=== PATIENT | male | born 1960 | race Caucasian/White ===

== ENCOUNTER 2017-12-31 15:40 | Inpatient (IN) | payer MEDICARE, OTHER ==
[2017-12-31] MEDS: METHYLPREDNISOLONE 125 MG INJ IV (16:04)
[2017-12-31] MEDS: AZITHROMYCIN 500MG/NS (PMX) 250 ML IV (16:05)
[2017-12-31] MEDS: SODIUM CHLORIDE 0.9% 1L BAG IV* (16:05)
[2017-12-31 16:07] LABS: ADD MAN DIFF? NO
[2017-12-31] MEDS: IPRATROPIUM (NEB) 0.5 MG/2.5 ML AMP INH (16:07)
[2017-12-31] MEDS: ALBUTEROL 0.5% (NEB) 2.5 MG/0.5 ML AMP INH (16:08)
[2017-12-31] MEDS: IBUPROFEN 600 MG TAB PO (16:08)
[2017-12-31 16:12] LABS: ABNORMAL IP MESSAGE 1; BASOPHILS % 0.1 % (0.0-2.0); EOSINOPHILS % 0.1 % (0.0-7.0); HEMATOCRIT 44.1 % (42.0-52.0); HEMOGLOBIN 12.9 g/dl (14.0-18.0); LYMPHOCYTES % 17.5 % (15.0-51.0); MEAN CORPUSCULAR HEMOGLOBIN 22.2 pg (29.0-33.0); MEAN CORPUSCULAR HGB CONC 29.3 g/dl (32.0-37.0); MEAN CORPUSCULAR VOLUME 75.8 fl (82.0-101.0); MEAN PLATELET VOLUME 10.1 fl (7.4-10.4); MONOCYTE # 0.5 10^3/ul (0.3-0.9); MONOCYTES % 4.5 % (0.0-11.0); NEUTROPHILS % 77.1 % (39.0-77.0); PLATELET COUNT 173 10^3/UL (140-415); POSITIVE DIFF @See below; RED BLOOD COUNT 5.82 10^6/ul (4.70-6.10); RED CELL DISTRIBUTION WIDTH 20.4 % (11.5-14.5)
[2017-12-31 16:12] LABS: WHITE BLOOD COUNT 11.7 10^3/ul (4.8-10.8)
[2017-12-31 16:27] LABS: INR 1.09; PROTIME 14.3 Sec (11.9-14.9); PT RATIO 1.1
[2017-12-31 16:28] LABS: PARTIAL THROMBOPLASTIN TIME 36.4 Sec (23.0-35.0)
[2017-12-31] MEDS ORDERED: DIPHENHYDRAMINE 50 MG INJ IV (16:30)
[2017-12-31 16:36] LABS: ALANINE AMINOTRANSFERASE 17 IU/L (13-69); ALBUMIN 4.2 g/dl (3.3-4.9); ALBUMIN/GLOBULIN RATIO 1.13; ALKALINE PHOSPHATASE 51 IU/L (42-121); ANION GAP 11 (5-13); ASPARTATE AMINO TRANSFERASE 18 IU/L (15-46); BILIRUBIN,INDIRECT 0.5 mg/dl (0-1.1); BILIRUBIN,TOTAL 0.5 mg/dl (0.2-1.3); BLOOD UREA NITROGEN 47 mg/dl (7-20); CARBON DIOXIDE 29 mmol/L (21-31); CHLORIDE 102 mmol/L (97-110); CREATININE 3.11 mg/dl (0.61-1.24); Estimated GFR 21 mL/min (>60); GLUCOSE 114 mg/dl (70-220); POTASSIUM 4.4 mmol/L (3.5-5.1); SODIUM 142 mmol/L (135-144); TOTAL PROTEIN 7.9 g/dl (6.1-8.1)
[2017-12-31 16:44] LABS: B-TYPE NATRIURETIC PEPTIDE 4240 PG/ML (0-125)
[2017-12-31 16:53] LABS: TROPONIN-I 0.251 ng/ml (0.000-0.120)
[2017-12-31 17:07] LABS: ADD UMIC YES; UR ASCORBIC ACID NEGATIVE (NEGATIVE); UR BILIRUBIN (Dip) NEGATIVE (NEGATIVE); UR BLOOD (Dip) 3+ mg/dL (NEGATIVE); UR CLARITY CLOUDY (CLEAR); UR COLOR YELLOW (YELLOW); UR GLUCOSE (Dip) NEGATIVE (NEGATIVE); UR KETONES (Dip) NEGATIVE (NEGATIVE); UR LEUKOCYTE ESTERASE (Dip) NEGATIVE Leu/ul (NEGATIVE); UR MUCUS FEW /HPF (NONE SEEN); UR NITRITE (Dip) NEGATIVE (NEGATIVE); UR RBC > 182 /HPF (0-5); UR SPECIFIC GRAVITY (Dip) 1.016 (1.003-1.030); UR TOTAL PROTEIN (Dip) 1+ mg/dl (NEGATIVE); UR UROBILINOGEN (Dip) NEGATIVE (NEGATIVE); UR WBC 28 /HPF (0-5)
[2017-12-31] MEDS: CEFTRIAXONE 1 GM/50 ML (PMX) 50 ML IVPB (17:25)
[2017-12-31] MEDS ORDERED: ONDANSETRON 4 MG INJ IV (18:30)
[2017-12-31] MEDS ORDERED: NACL 0.9% 3 ML SYG IV (18:30)
[2017-12-31] MEDS ORDERED: ALBUTEROL/IPRATROPIUM (NEB) 3 ML AMP NEB (18:30)
[2017-12-31] MEDS: NICOTINE (21 MG/24 HR) PATCH TRANSDERM (19:00)
[2017-12-31] MEDS ORDERED: oxyCODONE (CR) 40 MG TAB [oxyCONTIN] PO (20:00)
[2017-12-31] MEDS: ATENOLOL 50 MG TAB PO (21:00)
[2017-12-31 21:05] LABS: LACTIC ACID 2.3 mmol/L (0.5-2.0)
[2017-12-31 21:55] LABS: CREATININE,URINE RANDOM 223.23 mg/dl (20-370)
[2017-12-31] MEDS: GABAPENTIN 300 MG CAP PO (22:19)
[2017-12-31] MEDS: LOSARTAN 50 MG TAB PO (22:19)
[2017-12-31] MEDS: ATORVASTATIN 10 MG TAB PO (22:19)
[2017-12-31] MEDS: SOD CHLORIDE 0.9% 500 ML IV (22:25)
[2017-12-31] MEDS: ENOXAPARIN 30 MG/0.3 ML SYG SC (22:35)
[2017-12-31] MEDS: ARFORMOTEROL TARTRATE 15MCG/2 ML AMP INH (23:00)
[2017-12-31] MEDS: BUDESONIDE (NEB) 0.5MG/2ML AMP INH (23:02)
[2017-12-31] MEDS: oxyCODONE (CR) 20 MG TAB [oxyCONTIN] PO (23:41)
[2018-01-01 01:15] LABS: TROPONIN-I 0.313 ng/ml (0.000-0.120)
[2018-01-01] MEDS: ACETAMINOPHEN 325 MG TAB PO ×2 (03:40→11:46)
[2018-01-01] MEDS: NICOTINE (21 MG/24 HR) PATCH TRANSDERM (03:41)
[2018-01-01] MEDS: ATENOLOL 50 MG TAB PO ×3 (03:47→09:52)
[2018-01-01] MEDS: PANTOPRAZOLE (EC) 40 MG TAB PO ×2 (05:42→06:06)
[2018-01-01 05:59] LABS: ADD MAN DIFF? NO
[2018-01-01] MEDS: oxyCODONE (CR) 20 MG TAB [oxyCONTIN] PO ×3 (06:04→18:17)
[2018-01-01 06:13] LABS: ABNORMAL IP MESSAGE 1; HEMATOCRIT 37.7 % (42.0-52.0); HEMOGLOBIN 11.1 g/dl (14.0-18.0); LYMPHOCYTES # 0.9 10^3/ul (0.8-2.9); LYMPHOCYTES % 12.1 % (15.0-51.0); MEAN CORPUSCULAR HEMOGLOBIN 22.2 pg (29.0-33.0); MEAN CORPUSCULAR HGB CONC 29.4 g/dl (32.0-37.0); MEAN CORPUSCULAR VOLUME 75.6 fl (82.0-101.0); MEAN PLATELET VOLUME 10.9 fl (7.4-10.4); MONOCYTE # 0.2 10^3/ul (0.3-0.9); MONOCYTES % 2.4 % (0.0-11.0); NEUTROPHIL # 6.1 10^3/ul (1.6-7.5); NEUTROPHILS % 85.2 % (39.0-77.0); PLATELET COUNT 149 10^3/UL (140-415); POSITIVE DIFF @See below; RED BLOOD COUNT 4.99 10^6/ul (4.70-6.10); RED CELL DISTRIBUTION WIDTH 19.9 % (11.5-14.5)
[2018-01-01 06:13] LABS: WHITE BLOOD COUNT 7.1 10^3/ul (4.8-10.8)
[2018-01-01] MEDS: GABAPENTIN 300 MG CAP PO ×3 (06:44→17:31)
[2018-01-01 06:45] LABS: ALANINE AMINOTRANSFERASE 15 IU/L (13-69); ALBUMIN 3.7 g/dl (3.3-4.9); ALBUMIN/GLOBULIN RATIO 1.37; ALKALINE PHOSPHATASE 43 IU/L (42-121); ANION GAP 12 (5-13); ASPARTATE AMINO TRANSFERASE 16 IU/L (15-46); BILIRUBIN,INDIRECT 0.3 mg/dl (0-1.1); BILIRUBIN,TOTAL 0.3 mg/dl (0.2-1.3); BLOOD UREA NITROGEN 39 mg/dl (7-20); CARBON DIOXIDE 26 mmol/L (21-31); CHLORIDE 107 mmol/L (97-110); CREATININE 1.64 mg/dl (0.61-1.24); Estimated GFR 44 mL/min (>60); GLUCOSE 155 mg/dl (70-220); MAGNESIUM 2.2 mg/dl (1.7-2.5); PHOSPHORUS 4.6 mg/dl (2.5-4.9); POTASSIUM 4.6 mmol/L (3.5-5.1); SODIUM 145 mmol/L (135-144); TOTAL PROTEIN 6.4 g/dl (6.1-8.1)
[2018-01-01 06:54] LABS: HEMOGLOBIN A1C 5.8 % (0-5.9)
[2018-01-01 07:03] LABS: THYROID STIMULATING HORMONE 0.169 MIU/L (0.465-4.680)
[2018-01-01 07:13] LABS: LACTIC ACID 1.8 mmol/L (0.5-2.0)
[2018-01-01] MEDS: SOD CHLORIDE 0.45% 1,000 ML IV (08:16)
[2018-01-01] MEDS: ASPIRIN 81 MG TAB PO (08:16)
[2018-01-01] MEDS: ENOXAPARIN 30 MG/0.3 ML SYG SC (08:21)
[2018-01-01] MEDS ORDERED: ENOXAPARIN 40 MG/0.4 ML SYG SC (09:00)
[2018-01-01] MEDS: ARFORMOTEROL TARTRATE 15MCG/2 ML AMP INH (10:23)
[2018-01-01] MEDS: BUDESONIDE (NEB) 0.5MG/2ML AMP INH ×2 (10:24→20:38)
[2018-01-01 11:43] LABS: ADD UMIC YES; UR ASCORBIC ACID 40 mg/dL (NEGATIVE); UR BILIRUBIN (Dip) NEGATIVE (NEGATIVE); UR BLOOD (Dip) 3+ mg/dL (NEGATIVE); UR CLARITY CLEAR (CLEAR); UR COLOR YELLOW (YELLOW); UR GLUCOSE (Dip) NEGATIVE (NEGATIVE); UR KETONES (Dip) NEGATIVE (NEGATIVE); UR LEUKOCYTE ESTERASE (Dip) NEGATIVE Leu/ul (NEGATIVE); UR NITRITE (Dip) NEGATIVE (NEGATIVE); UR RBC 66 /HPF (0-5); UR SPECIFIC GRAVITY (Dip) 1.018 (1.003-1.030); UR TOTAL PROTEIN (Dip) 1+ mg/dl (NEGATIVE); UR UROBILINOGEN (Dip) NEGATIVE (NEGATIVE); UR WBC 5 /HPF (0-5)
[2018-01-01 12:10] LABS: SODIUM,URINE RANDOM < 13 mmol/L (30-90)
[2018-01-01 12:30] LABS: TROPONIN-I 0.787 ng/ml (0.000-0.120)
[2018-01-01] MEDS: AZITHROMYCIN 500MG/NS (PMX) 250 ML IVPB (16:36)
[2018-01-01] MEDS: METHYLPREDNISOLONE 40 MG INJ IV ×2 (17:31→21:25)
[2018-01-01] MEDS: CEFTRIAXONE 1 GM/50 ML (PMX) 50 ML IVPB (17:32)
[2018-01-01] MEDS: ALBUTEROL/IPRATROPIUM (NEB) 3 ML AMP HHN ×2 (17:58→20:57)
[2018-01-01] MEDS ORDERED: ATENOLOL 50 MG TAB PO (21:00)
[2018-01-01] MEDS: ATORVASTATIN 10 MG TAB PO (21:24)
[2018-01-01] MEDS: HYDROCODONE/HOMATROPINE 5ML CUP PO (21:24)
[2018-01-01] MEDS: ATENOLOL 25 MG TAB PO (21:25)
[2018-01-02] MEDS: GABAPENTIN 300 MG CAP PO ×5 (00:33→23:02)
[2018-01-02] MEDS: ACETAMINOPHEN 325 MG TAB PO ×3 (00:33→23:06)
[2018-01-02] MEDS: ALBUTEROL/IPRATROPIUM (NEB) 3 ML AMP HHN ×4 (01:51→20:52)
[2018-01-02] MEDS: SOD CHLORIDE 0.45% 1,000 ML IV ×2 (04:00→06:08)
[2018-01-02] MEDS: METHYLPREDNISOLONE 40 MG INJ IV ×3 (06:21→21:13)
[2018-01-02] MEDS: PANTOPRAZOLE (EC) 40 MG TAB PO (06:22)
[2018-01-02] MEDS: oxyCODONE (CR) 20 MG TAB [oxyCONTIN] PO ×2 (06:23→17:52)
[2018-01-02 06:43] LABS: ADD MAN DIFF? NO
[2018-01-02 06:45] LABS: ABNORMAL IP MESSAGE 1; BASOPHILS % 0.1 % (0.0-2.0); HEMATOCRIT 36.4 % (42.0-52.0); HEMOGLOBIN 10.8 g/dl (14.0-18.0); LYMPHOCYTES # 1.2 10^3/ul (0.8-2.9); LYMPHOCYTES % 12.9 % (15.0-51.0); MEAN CORPUSCULAR HEMOGLOBIN 22.4 pg (29.0-33.0); MEAN CORPUSCULAR HGB CONC 29.7 g/dl (32.0-37.0); MEAN CORPUSCULAR VOLUME 75.4 fl (82.0-101.0); MEAN PLATELET VOLUME 10.3 fl (7.4-10.4); MONOCYTE # 0.2 10^3/ul (0.3-0.9); MONOCYTES % 2.2 % (0.0-11.0); NEUTROPHIL # 7.6 10^3/ul (1.6-7.5); NEUTROPHILS % 84.2 % (39.0-77.0); PLATELET COUNT 175 10^3/UL (140-415); POSITIVE DIFF @See below; RED BLOOD COUNT 4.83 10^6/ul (4.70-6.10); RED CELL DISTRIBUTION WIDTH 19.1 % (11.5-14.5)
[2018-01-02 07:46] LABS: CREATINE KINASE 33 IU/L (23-200)
[2018-01-02 07:48] LABS: ANION GAP 8 (5-13); BLOOD UREA NITROGEN 31 mg/dl (7-20); CALCIUM 8.9 mg/dl (8.4-10.2); CARBON DIOXIDE 27 mmol/L (21-31); CHLORIDE 107 mmol/L (97-110); CREATININE 1.01 mg/dl (0.61-1.24); Estimated GFR > 60 mL/min (>60); GLUCOSE 144 mg/dl (70-220); MAGNESIUM 2.4 mg/dl (1.7-2.5); PHOSPHORUS 3.2 mg/dl (2.5-4.9); POTASSIUM 4.7 mmol/L (3.5-5.1); SODIUM 142 mmol/L (135-144)
[2018-01-02 07:59] LABS: CK INDEX 4.2; CK-MB 1.39 ng/ml (0.0-2.4)
[2018-01-02 08:07] LABS: TROPONIN-I 0.306 ng/ml (0.000-0.120)
[2018-01-02] MEDS: CLOPIDOGREL 75 MG TAB PO (08:07)
[2018-01-02] MEDS: HYDROCODONE/HOMATROPINE 5ML CUP PO ×3 (08:07→20:04)
[2018-01-02] MEDS: ENOXAPARIN 30 MG/0.3 ML SYG SC (08:08)
[2018-01-02] MEDS: ASPIRIN 81 MG TAB PO (08:08)
[2018-01-02] MEDS: ATENOLOL 25 MG TAB PO ×3 (08:11→20:04)
[2018-01-02] MEDS: BUDESONIDE (NEB) 0.5MG/2ML AMP INH ×3 (09:00→20:52)
[2018-01-02 15:22] LABS: CREATININE, RANDOM URINE 103 mg/dL (20-320); MICROALBUMIN 18.1 mg/dL; MICROALBUMIN/CREATININE RATIO 176 (<30)
[2018-01-02] MEDS: AZITHROMYCIN 500MG/NS (PMX) 250 ML IVPB (16:31)
[2018-01-02] MEDS: CEFTRIAXONE 1 GM/50 ML (PMX) 50 ML IVPB (17:51)
[2018-01-02] MEDS: NICOTINE (21 MG/24 HR) PATCH TRANSDERM (17:52)
[2018-01-02] MEDS: ATORVASTATIN 10 MG TAB PO (20:04)
[2018-01-03] MEDS: ALBUTEROL/IPRATROPIUM (NEB) 3 ML AMP HHN ×3 (02:41→14:00)
[2018-01-03] MEDS: PANTOPRAZOLE (EC) 40 MG TAB PO (05:13)
[2018-01-03] MEDS: GABAPENTIN 300 MG CAP PO ×2 (05:19→11:50)
[2018-01-03] MEDS: ACETAMINOPHEN 325 MG TAB PO ×2 (05:20→11:53)
[2018-01-03] MEDS: METHYLPREDNISOLONE 40 MG INJ IV (05:20)
[2018-01-03] MEDS: oxyCODONE (CR) 20 MG TAB [oxyCONTIN] PO (05:25)
[2018-01-03 06:28] LABS: ADD MAN DIFF? NO
[2018-01-03 06:53] LABS: WHITE BLOOD COUNT 7.3 10^3/ul (4.8-10.8)
[2018-01-03 06:53] LABS: ABNORMAL IP MESSAGE 1; BASOPHILS % 0.1 % (0.0-2.0); HEMATOCRIT 36.8 % (42.0-52.0); HEMOGLOBIN 11.2 g/dl (14.0-18.0); LYMPHOCYTES # 1.1 10^3/ul (0.8-2.9); LYMPHOCYTES % 15.4 % (15.0-51.0); MEAN CORPUSCULAR HEMOGLOBIN 22.3 pg (29.0-33.0); MEAN CORPUSCULAR HGB CONC 30.4 g/dl (32.0-37.0); MEAN CORPUSCULAR VOLUME 73.3 fl (82.0-101.0); MEAN PLATELET VOLUME 11.2 fl (7.4-10.4); MONOCYTE # 0.3 10^3/ul (0.3-0.9); MONOCYTES % 3.8 % (0.0-11.0); NEUTROPHIL # 5.9 10^3/ul (1.6-7.5); NEUTROPHILS % 79.7 % (39.0-77.0); PLATELET COUNT 210 10^3/UL (140-415); POSITIVE DIFF @See below; RED BLOOD COUNT 5.02 10^6/ul (4.70-6.10)
[2018-01-03 07:16] LABS: ANION GAP 8 (5-13); BLOOD UREA NITROGEN 23 mg/dl (7-20); CALCIUM 8.9 mg/dl (8.4-10.2); CARBON DIOXIDE 29 mmol/L (21-31); CHLORIDE 104 mmol/L (97-110); CREATININE 0.83 mg/dl (0.61-1.24); Estimated GFR > 60 mL/min (>60); GLUCOSE 144 mg/dl (70-220); MAGNESIUM 2.4 mg/dl (1.7-2.5); PHOSPHORUS 3.4 mg/dl (2.5-4.9); POTASSIUM 4.2 mmol/L (3.5-5.1); SODIUM 141 mmol/L (135-144)
[2018-01-03] MEDS: BUDESONIDE (NEB) 0.5MG/2ML AMP INH (08:29)
[2018-01-03] MEDS: ATENOLOL 25 MG TAB PO (08:59)
[2018-01-03] MEDS: CLOPIDOGREL 75 MG TAB PO (08:59)
[2018-01-03] MEDS: ASPIRIN 81 MG TAB PO (08:59)
[2018-01-03] MEDS: HYDROCODONE/HOMATROPINE 5ML CUP PO ×2 (09:00→13:22)
[2018-01-03] MEDS: ENOXAPARIN 30 MG/0.3 ML SYG SC (09:44)
[2018-01-03] MEDS: hydrALAzine 20 MG INJ IV (13:50)
[2018-01-03] MEDS ORDERED: METHYLPREDNISOLONE 40 MG INJ IV (21:00)
== END 2018-01-03 16:55 | disposition home or self-care (01) | DRG 871 ==
LOC: E/R 15:40 → TEL 16:50
DX: A41.9 Sepsis, unspecified organism (principal); I21.A1 Myocardial infarction type 2; J18.9 Pneumonia, unspecified organism; J44.0 Chronic obstructive pulmonary disease with (acute) lower respiratory infection; E87.0 Hyperosmolality and hypernatremia; J44.1 Chronic obstructive pulmonary disease with (acute) exacerbation; N17.9 Acute kidney failure, unspecified; I50.9 Heart failure, unspecified; F17.210 Nicotine dependence, cigarettes, uncomplicated; E78.5 Hyperlipidemia, unspecified; D64.9 Anemia, unspecified; I11.0 Hypertensive heart disease with heart failure; R31.9 Hematuria, unspecified; Z85.831 Personal history of malignant neoplasm of soft tissue; Z79.82 Long term (current) use of aspirin; Z92.21 Personal history of antineoplastic chemotherapy
CPT/HCPCS: 36415; 71045; 76775; 80048; 80053; 81001; 81003; 82043; 82540; 82550; 82553; 83036; 83605; 83735; 83880; 84100; 84155; 84300; 84443; 84484; 85025; 85610; 85730; 87040; 87070; 87086; 87400; 93005; 93306; 94640; 94644; 96374; 96375; 99291-25

== ENCOUNTER 2018-05-18 04:46 | Inpatient (IN) | payer MEDICARE, OTHER ==
[2018-05-18] MEDS: ETOMIDATE 20 MG INJ IV (04:54)
[2018-05-18] MEDS: ROCURONIUM 50 MG INJ IV (04:54)
[2018-05-18] MEDS ORDERED: PROPOFOL 100 ML (04:58)
[2018-05-18 05:10] LABS: ADD MAN DIFF? NO
[2018-05-18] MEDS: PROPOFOL 100 ML IV ×6 (05:10→20:26)
[2018-05-18 05:13] LABS: WHITE BLOOD COUNT 9.2 10^3/ul (4.8-10.8)
[2018-05-18 05:13] LABS: BASOPHILS % 0.2 % (0.0-2.0); EOSINOPHILS # 0.1 10^3/ul (0.0-0.5); EOSINOPHILS % 1.1 % (0.0-7.0); HEMATOCRIT 40.6 % (42.0-52.0); HEMOGLOBIN 12.4 g/dl (14.0-18.0); LYMPHOCYTES # 3.7 10^3/ul (0.8-2.9); LYMPHOCYTES % 39.8 % (15.0-51.0); MEAN CORPUSCULAR HEMOGLOBIN 24.5 pg (29.0-33.0); MEAN CORPUSCULAR HGB CONC 30.5 g/dl (32.0-37.0); MEAN CORPUSCULAR VOLUME 80.1 fl (82.0-101.0); MEAN PLATELET VOLUME 9.5 fl (7.4-10.4); MONOCYTE # 0.6 10^3/ul (0.3-0.9); NEUTROPHIL # 4.8 10^3/ul (1.6-7.5); NEUTROPHILS % 52.2 % (39.0-77.0); PLATELET COUNT 211 10^3/UL (140-415); RED BLOOD COUNT 5.07 10^6/ul (4.70-6.10); RED CELL DISTRIBUTION WIDTH 17.1 % (11.5-14.5)
[2018-05-18] MEDS: HYDROmorphONE 0.5 MG/0.5 ML SYG IV (05:20)
[2018-05-18 05:28] LABS: ADD UMIC YES; UR ASCORBIC ACID NEGATIVE (NEGATIVE); UR BILIRUBIN (Dip) NEGATIVE (NEGATIVE); UR BLOOD (Dip) 1+ mg/dL (NEGATIVE); UR CLARITY CLEAR (CLEAR); UR COLOR YELLOW (YELLOW); UR GLUCOSE (Dip) NEGATIVE (NEGATIVE); UR KETONES (Dip) NEGATIVE (NEGATIVE); UR LEUKOCYTE ESTERASE (Dip) NEGATIVE Leu/ul (NEGATIVE); UR NITRITE (Dip) NEGATIVE (NEGATIVE); UR RBC 12 /HPF (0-5); UR SPECIFIC GRAVITY (Dip) 1.009 (1.003-1.030); UR TOTAL PROTEIN (Dip) 2+ mg/dl (NEGATIVE); UR UROBILINOGEN (Dip) 1+ mg/dL (NEGATIVE); UR WBC 2 /HPF (0-5)
[2018-05-18 05:31] LABS: ALANINE AMINOTRANSFERASE 318 IU/L (13-69); ALBUMIN 4.2 g/dl (3.3-4.9); ALBUMIN/GLOBULIN RATIO 1.35; ALKALINE PHOSPHATASE 80 IU/L (42-121); ANION GAP 10 (5-13); ASPARTATE AMINO TRANSFERASE 117 IU/L (15-46); BILIRUBIN,INDIRECT 0.5 mg/dl (0-1.1); BILIRUBIN,TOTAL 0.5 mg/dl (0.2-1.3); BLOOD UREA NITROGEN 14 mg/dl (7-20); CALCIUM 8.6 mg/dl (8.4-10.2); CARBON DIOXIDE 32 mmol/L (21-31); CHLORIDE 102 mmol/L (97-110); CREATININE 0.93 mg/dl (0.61-1.24); Estimated GFR > 60 mL/min (>60); GLUCOSE 164 mg/dl (70-220); POTASSIUM 4.1 mmol/L (3.5-5.1); SODIUM 144 mmol/L (135-144); TOTAL PROTEIN 7.3 g/dl (6.1-8.1)
[2018-05-18 05:42] LABS: TROPONIN-I 0.031 ng/ml (0.000-0.120)
[2018-05-18] MEDS: PIPER-TAZO 3.375 GM IV (PMX) 100 ML IVPB (05:55)
[2018-05-18] MEDS: niCARdipine-NS 0.1MG/ML DRIP 200 ML IV (05:58)
[2018-05-18 06:06] LABS: AADO2 Arterial 280.9 mmHg (7.0-24.0); Allen Test ACCEPTAB; Arterial Base Excess 1.9 mmol/L (-3.0-3); Arterial Blood Gas Oxygen Sat 99.3 mmHG (95.0-98.0); Arterial COHb 0.5 % (0.0-3.0); Arterial Fraction of Oxyhgb 98.5 % (93.0-99.0); Arterial HCO3 29.6 mmol/L (22.0-26.0); Arterial MetHb 0.3 % (0.0-1.5); Arterial pCO2 62.5 mmhg (35-45); MODE VENT - AC; Site Right Radial
[2018-05-18] MEDS: IOHEXOL 300MG/ML 150 ML BTL (06:25)
[2018-05-18] MEDS: SOD CHLORIDE 0.9% 100 ML (06:25)
[2018-05-18] MEDS: VANCOMYCIN 1 GM (PMX) 250 ML IVPB (06:59)
[2018-05-18] MEDS ORDERED: ETOMIDATE 20 MG INJ (07:00)
[2018-05-18 07:31] LABS: INR 0.94; PROTIME 12.7 Sec (11.9-14.9)
[2018-05-18 07:32] LABS: PARTIAL THROMBOPLASTIN TIME 29.8 Sec (23.0-35.0)
[2018-05-18 10:46] LABS: LACTIC ACID 0.9 mmol/L (0.5-2.0)
[2018-05-18] MEDS: PANTOPRAZOLE 40 MG INJ IV (10:55)
[2018-05-18] MEDS: FENTAnyl (DRIP) 1000 mcg/100mL 100 ML IV (11:10)
[2018-05-18] MEDS: ENOXAPARIN 30 MG/0.3 ML SYG SC (11:13)
[2018-05-18 11:20] LABS: CREATININE,URINE RANDOM 29.63 mg/dl (20-370)
[2018-05-18 11:20] LABS: SODIUM,URINE RANDOM 138 mmol/L (30-90)
[2018-05-18] MEDS ORDERED: VANCOMYCIN IV PER PHARMACY XX (13:00)
[2018-05-18 13:43] LABS: B-TYPE NATRIURETIC PEPTIDE 2290 PG/ML (0-125)
[2018-05-18] MEDS: CEFEPIME 1GM/50 ML (PMX) 50 ML IVPB ×2 (14:51→21:00)
[2018-05-18] MEDS: VANCOMYCIN 1 GM 250 ML IVPB (15:35)
[2018-05-18] MEDS: VANCOMYCIN HCL 1.5 GM in SOD CHLORIDE 0.9% 250 ML IVPB (23:20)
[2018-05-18 23:35] LABS: AADO2 Arterial 129.5 mmHg (7.0-24.0); Allen Test ACCEPTAB; Arterial Base Excess 4.7 mmol/L (-3.0-3); Arterial Blood Gas Oxygen Sat 95.6 mmHG (95.0-98.0); Arterial COHb 0.3 % (0.0-3.0); Arterial Fraction of Oxyhgb 95.2 % (93.0-99.0); Arterial HCO3 28.1 mmol/L (22.0-26.0); Arterial MetHb 0.1 % (0.0-1.5); Arterial pCO2 37.6 mmhg (35-45); MODE VENT - AC; Site Left Radial
[2018-05-19] MEDS: PROPOFOL 100 ML IV ×7 (00:07→23:00)
[2018-05-19] MEDS: FENTAnyl (DRIP) 1000 mcg/100mL 100 ML IV ×2 (01:28→14:05)
[2018-05-19] MEDS: PANTOPRAZOLE 40 MG INJ IV (06:03)
[2018-05-19 06:12] LABS: HAAIG REFLEX REFLEX FILED
[2018-05-19 06:14] LABS: HEMATOCRIT 30.3 % (42.0-52.0); HEMOGLOBIN 9.8 g/dl (14.0-18.0); MEAN CORPUSCULAR HEMOGLOBIN 24.7 pg (29.0-33.0); MEAN CORPUSCULAR HGB CONC 32.3 g/dl (32.0-37.0); MEAN CORPUSCULAR VOLUME 76.3 fl (82.0-101.0); MEAN PLATELET VOLUME 9.3 fl (7.4-10.4); PLATELET COUNT 128 10^3/UL (140-415); POSITIVE DIFF @See below; RED BLOOD COUNT 3.97 10^6/ul (4.70-6.10); RED CELL DISTRIBUTION WIDTH 17.5 % (11.5-14.5)
[2018-05-19 06:14] LABS: WHITE BLOOD COUNT 2.5 10^3/ul (4.8-10.8)
[2018-05-19 06:23] LABS: ADD MAN DIFF? YES
[2018-05-19 06:37] LABS: ALANINE AMINOTRANSFERASE 237 IU/L (13-69); ALBUMIN 3.1 g/dl (3.3-4.9); ALBUMIN/GLOBULIN RATIO 1.14; ALKALINE PHOSPHATASE 73 IU/L (42-121); ANION GAP 9 (5-13); ASPARTATE AMINO TRANSFERASE 111 IU/L (15-46); BILIRUBIN,INDIRECT 0.4 mg/dl (0-1.1); BILIRUBIN,TOTAL 0.4 mg/dl (0.2-1.3); BLOOD UREA NITROGEN 15 mg/dl (7-20); CALCIUM 8.4 mg/dl (8.4-10.2); CARBON DIOXIDE 27 mmol/L (21-31); CHLORIDE 105 mmol/L (97-110); CREATINE KINASE 46 IU/L (23-200); CREATININE 1.15 mg/dl (0.61-1.24); Estimated GFR > 60 mL/min (>60); GLUCOSE 89 mg/dl (70-220); POTASSIUM 3.7 mmol/L (3.5-5.1); SODIUM 141 mmol/L (135-144); TOTAL PROTEIN 5.8 g/dl (6.1-8.1)
[2018-05-19 06:49] LABS: CK INDEX 1.7; CK-MB 0.77 ng/ml (0.0-2.4); TROPONIN-I 0.062 ng/ml (0.000-0.120)
[2018-05-19 07:07] LABS: HEPATITIS B SURFACE ANTIGEN NEGATIVE (NEGATIVE)
[2018-05-19 07:26] LABS: HEPATITIS B CORE ANTIBODY NEGATIVE (NEGATIVE); HEPATITIS C VIRAL ANTIBODY NEGATIVE (NEGATIVE)
[2018-05-19] MEDS: CEFEPIME 1GM/50 ML (PMX) 50 ML IVPB ×2 (08:57→21:46)
[2018-05-19] MEDS: ENOXAPARIN 30 MG/0.3 ML SYG SC (09:03)
[2018-05-19 09:10] LABS: ANISOCYTOSIS 2+ (0-0); BASOPHILS % (M) 1 % (0-2); BURR CELLS 1+ (0-0); GIANT THROMBO% (M) 1 % (0-0); LYMPHOCYTES % (M) 43 % (15-51); MICROCYTOSIS 1+ (0-0); MONOCYTES % (M) 2 % (0-11); OVALOCYTES 2+ (0-0); PLATELET ESTIMATE DECREASED; POIKILOCYTOSIS 2+ (0-0); POLYCHROMASIA 1+ (0-0); SEGMENTED NEUTROPHILS (M) % 54 % (39-77); SMUDGE%M 3 % (0-0)
[2018-05-19] MEDS: hydrALAzine 20 MG INJ IV ×3 (10:10→11:30)
[2018-05-19] MEDS: VANCOMYCIN HCL 1.5 GM in SOD CHLORIDE 0.9% 250 ML IVPB (11:40)
[2018-05-19 12:02] LABS: AADO2 Arterial 104.2 mmHg (7.0-24.0); Allen Test ACCEPTAB; Arterial Base Excess -0.8 mmol/L (-3.0-3); Arterial Blood Gas Oxygen Sat 90.9 mmHG (95.0-98.0); Arterial COHb 0.3 % (0.0-3.0); Arterial Fraction of Oxyhgb 90.4 % (93.0-99.0); Arterial HCO3 24.1 mmol/L (22.0-26.0); Arterial MetHb 0.2 % (0.0-1.5); Arterial pCO2 40.5 mmhg (35-45); Blood Gas PS 10; MODE VENT - CPAP; Site Right Radial
[2018-05-19] MEDS ORDERED: ALBUTEROL/IPRATROPIUM (NEB) 3 ML AMP HHN (13:00)
[2018-05-19] MEDS: IPRATROPIUM (HFA) 12.9 GM INHALER INH ×3 (13:00→21:29)
[2018-05-19] MEDS: ALBUTEROL HFA 8 GM INHALER INH ×3 (13:33→21:29)
[2018-05-19] MEDS: FUROSEMIDE 20 MG INJ IV (13:50)
[2018-05-19] MEDS: METHYLPREDNISOLONE 40 MG INJ IV ×2 (13:50→21:45)
[2018-05-19 14:03] LABS: CREATINE KINASE 62 IU/L (23-200)
[2018-05-19 14:16] LABS: CK INDEX 1.7; CK-MB 1.08 ng/ml (0.0-2.4)
[2018-05-19 17:55] LABS: CREATINE KINASE 48 IU/L (23-200)
[2018-05-19 18:07] LABS: CK INDEX 2.1; CK-MB 1.03 ng/ml (0.0-2.4); TROPONIN-I 0.083 ng/ml (0.000-0.120)
[2018-05-19 23:23] LABS: VANCOMYCIN,TROUGH 22.6 ug/ml (10.0-20.0)
[2018-05-20] MEDS: FENTAnyl (DRIP) 1000 mcg/100mL 100 ML IV ×2 (01:25→10:51)
[2018-05-20] MEDS: PROPOFOL 100 ML IV ×4 (02:24→12:19)
[2018-05-20] MEDS: VANCOMYCIN 1 GM 250 ML IVPB ×2 (04:21→15:51)
[2018-05-20 05:09] LABS: AADO2 Arterial 91.5 mmHg (7.0-24.0); Allen Test ACCEPTAB; Arterial Base Excess -0.1 mmol/L (-3.0-3); Arterial Blood Gas Oxygen Sat 95.7 mmHG (95.0-98.0); Arterial COHb 0.3 % (0.0-3.0); Arterial Fraction of Oxyhgb 95.2 % (93.0-99.0); Arterial HCO3 23.7 mmol/L (22.0-26.0); Arterial MetHb 0.2 % (0.0-1.5); Arterial pCO2 36.1 mmhg (35-45); MODE VENT - AC; Site Right Radial
[2018-05-20 05:14] LABS: ADD MAN DIFF? NO
[2018-05-20] MEDS: PANTOPRAZOLE 40 MG INJ IV (05:20)
[2018-05-20] MEDS: METHYLPREDNISOLONE 40 MG INJ IV ×3 (05:20→22:07)
[2018-05-20 05:22] LABS: ABNORMAL IP MESSAGE 1; HEMATOCRIT 30.6 % (42.0-52.0); HEMOGLOBIN 10.2 g/dl (14.0-18.0); MEAN CORPUSCULAR HEMOGLOBIN 24.9 pg (29.0-33.0); MEAN CORPUSCULAR HGB CONC 33.3 g/dl (32.0-37.0); MEAN CORPUSCULAR VOLUME 74.8 fl (82.0-101.0); MEAN PLATELET VOLUME 10.4 fl (7.4-10.4); PLATELET COUNT 135 10^3/UL (140-415); POSITIVE DIFF @See below; RED BLOOD COUNT 4.09 10^6/ul (4.70-6.10); RED CELL DISTRIBUTION WIDTH 17.6 % (11.5-14.5)
[2018-05-20 05:22] LABS: WHITE BLOOD COUNT 1.7 10^3/ul (4.8-10.8)
[2018-05-20 06:06] LABS: ANION GAP 10 (5-13); BLOOD UREA NITROGEN 23 mg/dl (7-20); CALCIUM 8.6 mg/dl (8.4-10.2); CARBON DIOXIDE 23 mmol/L (21-31); CHLORIDE 109 mmol/L (97-110); CREATININE 1.25 mg/dl (0.61-1.24); Estimated GFR 60 mL/min (>60); GLUCOSE 145 mg/dl (70-220); SODIUM 142 mmol/L (135-144)
[2018-05-20] MEDS: FUROSEMIDE 20 MG INJ IV (08:48)
[2018-05-20] MEDS: CEFEPIME 1GM/50 ML (PMX) 50 ML IVPB ×2 (08:48→20:49)
[2018-05-20] MEDS: ENOXAPARIN 30 MG/0.3 ML SYG SC (08:50)
[2018-05-20] MEDS: ALBUTEROL HFA 8 GM INHALER INH ×2 (09:13→12:36)
[2018-05-20] MEDS: IPRATROPIUM (HFA) 12.9 GM INHALER INH ×2 (09:13→12:36)
[2018-05-20 11:38] LABS: ADD MAN DIFF? NO
[2018-05-20 11:46] LABS: ABNORMAL IP MESSAGE 1; HEMATOCRIT 28.2 % (42.0-52.0); HEMOGLOBIN 9.1 g/dl (14.0-18.0); LYMPHOCYTES # 0.4 10^3/ul (0.8-2.9); LYMPHOCYTES % 18.5 % (15.0-51.0); MEAN CORPUSCULAR HEMOGLOBIN 24.7 pg (29.0-33.0); MEAN CORPUSCULAR HGB CONC 32.3 g/dl (32.0-37.0); MEAN CORPUSCULAR VOLUME 76.6 fl (82.0-101.0); MEAN PLATELET VOLUME 10.6 fl (7.4-10.4); MONOCYTE # 0.1 10^3/ul (0.3-0.9); NEUTROPHIL # 1.6 10^3/ul (1.6-7.5); PLATELET COUNT 121 10^3/UL (140-415); POSITIVE DIFF @See below; RED BLOOD COUNT 3.68 10^6/ul (4.70-6.10); RED CELL DISTRIBUTION WIDTH 17.5 % (11.5-14.5)
[2018-05-20 13:56] LABS: AADO2 Arterial 96.4 mmHg (7.0-24.0); Allen Test ACCEPTAB; Arterial Base Excess -0.5 mmol/L (-3.0-3); Arterial Blood Gas Oxygen Sat 95.2 mmHG (95.0-98.0); Arterial COHb 0.2 % (0.0-3.0); Arterial Fraction of Oxyhgb 94.8 % (93.0-99.0); Arterial HCO3 22.8 mmol/L (22.0-26.0); Arterial MetHb 0.2 % (0.0-1.5); Arterial pCO2 33.2 mmhg (35-45); Blood Gas PS 8; MODE VENT - CPAP; Site Right Radial
[2018-05-20] MEDS: hydrALAzine 20 MG INJ IV ×2 (15:30→18:17)
[2018-05-20] MEDS: morphine 2 MG INJ IV (15:55)
[2018-05-20] MEDS: HYDROmorphONE 0.5 MG/0.5 ML SYG IV ×2 (16:46→17:19)
[2018-05-20 17:46] LABS: AADO2 Arterial 96.4 mmHg (7.0-24.0); Allen Test ACCEPTAB; Arterial Base Excess -0.5 mmol/L (-3.0-3); Arterial Blood Gas Oxygen Sat 95.2 mmHG (95.0-98.0); Arterial COHb 0.2 % (0.0-3.0); Arterial Fraction of Oxyhgb 94.8 % (93.0-99.0); Arterial HCO3 22.8 mmol/L (22.0-26.0); Arterial MetHb 0.2 % (0.0-1.5); Arterial pCO2 33.2 mmhg (35-45); Blood Gas PS 8; MODE VENT - CPAP; Site Right Radial
[2018-05-20] MEDS: ALBUTEROL/IPRATROPIUM (NEB) 3 ML AMP HHN ×2 (18:06→20:38)
[2018-05-20] MEDS: SOD CHLORIDE 0.9% 1,000 ML IV (19:06)
[2018-05-20] MEDS: DIPHENHYDRAMINE 50 MG INJ IV (19:18)
[2018-05-20] MEDS: ONDANSETRON 4 MG INJ IV (19:37)
[2018-05-20] MEDS ORDERED: HYDROmorphONE 1 MG/ML SYG IV (21:00)
[2018-05-20] MEDS: METOPROLOL 25 MG TAB PO (21:00)
[2018-05-20] MEDS: HYDROmorphONE 1 MG/ML SYG IV (22:14)
[2018-05-21] MEDS: ALBUTEROL/IPRATROPIUM (NEB) 3 ML AMP HHN ×6 (00:40→20:32)
[2018-05-21] MEDS: DIPHENHYDRAMINE 50 MG INJ IV (01:09)
[2018-05-21] MEDS: HYDROmorphONE 1 MG/ML SYG IV ×4 (02:12→14:05)
[2018-05-21] MEDS: VANCOMYCIN 1 GM 250 ML IVPB ×2 (03:56→16:22)
[2018-05-21 05:30] LABS: ADD MAN DIFF? NO
[2018-05-21] MEDS: ENALAPRILAT 1.25 MG INJ IV ×2 (05:40→13:40)
[2018-05-21] MEDS: PANTOPRAZOLE 40 MG INJ IV (05:43)
[2018-05-21 05:44] LABS: WHITE BLOOD COUNT 2.6 10^3/ul (4.8-10.8)
[2018-05-21 05:44] LABS: ABNORMAL IP MESSAGE 1; HEMATOCRIT 32.4 % (42.0-52.0); HEMOGLOBIN 10.3 g/dl (14.0-18.0); LYMPHOCYTES # 0.3 10^3/ul (0.8-2.9); LYMPHOCYTES % 10.9 % (15.0-51.0); MEAN CORPUSCULAR HEMOGLOBIN 24.3 pg (29.0-33.0); MEAN CORPUSCULAR HGB CONC 31.8 g/dl (32.0-37.0); MEAN CORPUSCULAR VOLUME 76.4 fl (82.0-101.0); MEAN PLATELET VOLUME 10.6 fl (7.4-10.4); MONOCYTE # 0.1 10^3/ul (0.3-0.9); MONOCYTES % 3.5 % (0.0-11.0); NEUTROPHIL # 2.2 10^3/ul (1.6-7.5); NEUTROPHILS % 84.8 % (39.0-77.0); PLATELET COUNT 121 10^3/UL (140-415); POSITIVE DIFF @See below; RED BLOOD COUNT 4.24 10^6/ul (4.70-6.10); RED CELL DISTRIBUTION WIDTH 18.6 % (11.5-14.5)
[2018-05-21] MEDS: METHYLPREDNISOLONE 40 MG INJ IV ×3 (05:50→22:02)
[2018-05-21 06:02] LABS: ANION GAP 8 (5-13); BLOOD UREA NITROGEN 27 mg/dl (7-20); CALCIUM 8.3 mg/dl (8.4-10.2); CARBON DIOXIDE 26 mmol/L (21-31); CHLORIDE 112 mmol/L (97-110); CREATININE 1.07 mg/dl (0.61-1.24); Estimated GFR > 60 mL/min (>60); GLUCOSE 160 mg/dl (70-220); POTASSIUM 4.3 mmol/L (3.5-5.1); SODIUM 146 mmol/L (135-144)
[2018-05-21] MEDS: niCARdipine-NS 0.1MG/ML DRIP 200 ML IV ×2 (06:40→14:44)
[2018-05-21 06:58] LABS: AADO2 Arterial 60.6 mmHg (7.0-24.0); Allen Test ACCEPTAB; Arterial Base Excess 0 mmol/L (-3.0-3); Arterial Blood Gas Oxygen Sat 95.4 mmHG (95.0-98.0); Arterial COHb 0.3 % (0.0-3.0); Arterial Fraction of Oxyhgb 94.9 % (93.0-99.0); Arterial HCO3 25.1 mmol/L (22.0-26.0); Arterial MetHb 0.2 % (0.0-1.5); Arterial pCO2 42.6 mmhg (35-45); MODE NASAL CANNULA; Site Right Radial
[2018-05-21] MEDS: CEFEPIME 1GM/50 ML (PMX) 50 ML IVPB ×2 (08:29→22:02)
[2018-05-21] MEDS: LISINOPRIL 20 MG TAB PO (08:31)
[2018-05-21] MEDS: ENOXAPARIN 30 MG/0.3 ML SYG SC (08:31)
[2018-05-21] MEDS: METOPROLOL 25 MG TAB PO (08:32)
[2018-05-21 11:38] LABS: ALANINE AMINOTRANSFERASE 206 IU/L (13-69); ALBUMIN 3.4 g/dl (3.3-4.9); ALKALINE PHOSPHATASE 77 IU/L (42-121); ASPARTATE AMINO TRANSFERASE 74 IU/L (15-46); BILIRUBIN,INDIRECT 0.3 mg/dl (0-1.1); BILIRUBIN,TOTAL 0.3 mg/dl (0.2-1.3); TOTAL PROTEIN 6.2 g/dl (6.1-8.1)
[2018-05-21] MEDS: ONDANSETRON 4 MG INJ IV ×2 (12:55→20:17)
[2018-05-21] MEDS: SOD CHLORIDE 0.9% 1,000 ML IV (12:56)
[2018-05-21 15:52] LABS: VANCOMYCIN,TROUGH 13.8 ug/ml (10.0-20.0)
[2018-05-21] MEDS: ATENOLOL 50 MG TAB PO (16:23)
[2018-05-21] MEDS: oxyCODONE (CR) 20 MG TAB [oxyCONTIN] PO (16:56)
[2018-05-21] MEDS: ARFORMOTEROL TARTRATE 15MCG/2 ML AMP INH (20:00)
[2018-05-21] MEDS: BUDESONIDE (NEB) 0.5MG/2ML AMP INH (20:31)
[2018-05-21] MEDS ORDERED: METOPROLOL 50 MG TAB PO (21:00)
[2018-05-21] MEDS: GABAPENTIN 300 MG CAP PO (22:02)
[2018-05-22] MEDS: oxyCODONE (CR) 20 MG TAB [oxyCONTIN] PO ×4 (00:02→20:31)
[2018-05-22] MEDS: ALBUTEROL/IPRATROPIUM (NEB) 3 ML AMP HHN ×2 (01:06→04:28)
[2018-05-22] MEDS: SOD CHLORIDE 0.9% 1,000 ML IV (04:46)
[2018-05-22] MEDS: VANCOMYCIN 1 GM 250 ML IVPB ×2 (04:46→15:45)
[2018-05-22] MEDS: PANTOPRAZOLE 40 MG INJ IV (05:14)
[2018-05-22] MEDS: METHYLPREDNISOLONE 40 MG INJ IV ×3 (05:14→22:13)
[2018-05-22] MEDS: ONDANSETRON 4 MG INJ IV (05:14)
[2018-05-22 05:35] LABS: WHITE BLOOD COUNT 1.5 10^3/ul (4.8-10.8)
[2018-05-22 05:35] LABS: ABNORMAL IP MESSAGE 1; HEMATOCRIT 30.4 % (42.0-52.0); HEMOGLOBIN 9.8 g/dl (14.0-18.0); MEAN CORPUSCULAR HEMOGLOBIN 25.3 pg (29.0-33.0); MEAN CORPUSCULAR HGB CONC 32.2 g/dl (32.0-37.0); MEAN CORPUSCULAR VOLUME 78.4 fl (82.0-101.0); MEAN PLATELET VOLUME 9.8 fl (7.4-10.4); PLATELET COUNT 95 10^3/UL (140-415); POSITIVE DIFF @See below; RED BLOOD COUNT 3.88 10^6/ul (4.70-6.10); RED CELL DISTRIBUTION WIDTH 18.6 % (11.5-14.5)
[2018-05-22 05:37] LABS: ADD MAN DIFF? YES
[2018-05-22 06:03] LABS: ALANINE AMINOTRANSFERASE 160 IU/L (13-69); ALBUMIN/GLOBULIN RATIO 1.25; ALKALINE PHOSPHATASE 60 IU/L (42-121); ANION GAP 6 (5-13); ASPARTATE AMINO TRANSFERASE 64 IU/L (15-46); BILIRUBIN,INDIRECT 0.2 mg/dl (0-1.1); BILIRUBIN,TOTAL 0.2 mg/dl (0.2-1.3); BLOOD UREA NITROGEN 25 mg/dl (7-20); CALCIUM 8.2 mg/dl (8.4-10.2); CARBON DIOXIDE 28 mmol/L (21-31); CHLORIDE 107 mmol/L (97-110); CREATININE 0.84 mg/dl (0.61-1.24); Estimated GFR > 60 mL/min (>60); GLUCOSE 138 mg/dl (70-220); POTASSIUM 4.8 mmol/L (3.5-5.1); SODIUM 141 mmol/L (135-144); TOTAL PROTEIN 5.4 g/dl (6.1-8.1)
[2018-05-22 06:07] LABS: MAGNESIUM 2.5 mg/dl (1.7-2.5)
[2018-05-22 06:07] LABS: PHOSPHORUS 3.5 mg/dl (2.5-4.9)
[2018-05-22 07:09] LABS: ANISOCYTOSIS 2+ (0-0); BAND NEUTROPHILS % (M) 1 % (0-4); BURR CELLS 1+ (0-0); GIANT THROMBO% (M) 5 % (0-0); LYMPHOCYTES #M 0.3 10^3/ul (0.8-2.9); LYMPHOCYTES % (M) 24 % (15-51); MICROCYTOSIS 1+ (0-0); MONOCYTES % (M) 3 % (0-11); OVALOCYTES 1+ (0-0); PLATELET ESTIMATE DECREASED; POIKILOCYTOSIS 2+ (0-0); POLYCHROMASIA 3+ (0-0); REACTIVE LYMPHOCYTES% (M) 6 % (0-0); SEGMENTED NEUTROPHILS (M) % 66 % (39-77); SMUDGE%M 12 % (0-0); TEAR DROP CELLS 1+ (0-0)
[2018-05-22] MEDS: LISINOPRIL 20 MG TAB PO ×2 (09:00→20:33)
[2018-05-22] MEDS: GABAPENTIN 300 MG CAP PO ×3 (09:03→20:31)
[2018-05-22] MEDS: ATENOLOL 50 MG TAB PO ×2 (09:08→20:32)
[2018-05-22] MEDS: ASPIRIN 81 MG TAB PO (09:08)
[2018-05-22] MEDS: ENOXAPARIN 30 MG/0.3 ML SYG SC (09:12)
[2018-05-22] MEDS: CEFEPIME 1GM/50 ML (PMX) 50 ML IVPB ×2 (09:16→20:31)
[2018-05-22] MEDS: BUDESONIDE (NEB) 0.5MG/2ML AMP INH ×2 (10:00→19:52)
[2018-05-22] MEDS: ARFORMOTEROL TARTRATE 15MCG/2 ML AMP INH ×2 (10:08→19:52)
[2018-05-22] MEDS: ALBUTEROL 0.083% (NEB) 2.5 MG/3 ML AMP HHN ×2 (13:39→19:51)
[2018-05-22] MEDS: FILGRASTIM 480 MCG INJ SC (18:15)
[2018-05-23] MEDS: ONDANSETRON 4 MG INJ IV (00:14)
[2018-05-23] MEDS: HYDROmorphONE 1 MG/ML SYG IV (01:57)
[2018-05-23] MEDS: ALBUTEROL 0.083% (NEB) 2.5 MG/3 ML AMP HHN ×4 (02:04→19:47)
[2018-05-23] MEDS: oxyCODONE (CR) 20 MG TAB [oxyCONTIN] PO ×3 (04:55→20:12)
[2018-05-23] MEDS: GABAPENTIN 300 MG CAP PO ×3 (04:55→20:12)
[2018-05-23] MEDS: VANCOMYCIN 1 GM 250 ML IVPB ×2 (04:56→13:12)
[2018-05-23] MEDS: PANTOPRAZOLE (EC) 40 MG TAB PO (05:49)
[2018-05-23 05:53] LABS: WHITE BLOOD COUNT 2.3 10^3/ul (4.8-10.8)
[2018-05-23 05:53] LABS: ABNORMAL IP MESSAGE 1; HEMATOCRIT 30.9 % (42.0-52.0); HEMOGLOBIN 9.7 g/dl (14.0-18.0); MEAN CORPUSCULAR HEMOGLOBIN 24.6 pg (29.0-33.0); MEAN CORPUSCULAR HGB CONC 31.4 g/dl (32.0-37.0); MEAN CORPUSCULAR VOLUME 78.4 fl (82.0-101.0); PLATELET COUNT 87 10^3/UL (140-415); POSITIVE DIFF @See below; RED BLOOD COUNT 3.94 10^6/ul (4.70-6.10); RED CELL DISTRIBUTION WIDTH 18.5 % (11.5-14.5)
[2018-05-23 06:33] LABS: ADD MAN DIFF? YES
[2018-05-23 06:36] LABS: ANION GAP 7 (5-13); BLOOD UREA NITROGEN 23 mg/dl (7-20); CALCIUM 8.2 mg/dl (8.4-10.2); CARBON DIOXIDE 25 mmol/L (21-31); CHLORIDE 106 mmol/L (97-110); CREATININE 0.83 mg/dl (0.61-1.24); Estimated GFR > 60 mL/min (>60); GLUCOSE 139 mg/dl (70-220); MAGNESIUM 2.6 mg/dl (1.7-2.5); POTASSIUM 4.8 mmol/L (3.5-5.1); SODIUM 138 mmol/L (135-144)
[2018-05-23] MEDS: ARFORMOTEROL TARTRATE 15MCG/2 ML AMP INH ×2 (08:42→19:48)
[2018-05-23] MEDS: BUDESONIDE (NEB) 0.5MG/2ML AMP INH ×2 (08:43→19:48)
[2018-05-23] MEDS: LISINOPRIL 20 MG TAB PO ×2 (09:16→20:17)
[2018-05-23] MEDS: ASPIRIN 81 MG TAB PO (09:17)
[2018-05-23] MEDS: METHYLPREDNISOLONE 40 MG INJ IV ×2 (09:18→20:19)
[2018-05-23] MEDS: ATENOLOL 50 MG TAB PO ×2 (09:18→20:17)
[2018-05-23 09:25] LABS: ANISOCYTOSIS 2+ (0-0); BAND NEUTROPHILS % (M) 3 % (0-4); LYMPHOCYTES #M 0.2 10^3/ul (0.8-2.9); LYMPHOCYTES % (M) 12 % (15-51); MICROCYTOSIS 2+ (0-0); MONOCYTES % (M) 4 % (0-11); OVALOCYTES 1+ (0-0); PLATELET ESTIMATE DECREASED; POIKILOCYTOSIS 2+ (0-0); SEG NEUT #M 1.9 10^3/ul (1.6-7.5); SEGMENTED NEUTROPHILS (M) % 81 % (39-77); SMUDGE%M 5 % (0-0)
[2018-05-23] MEDS: ENOXAPARIN 30 MG/0.3 ML SYG SC (09:30)
[2018-05-23] MEDS: CEFEPIME 1GM/50 ML (PMX) 50 ML IVPB ×2 (10:27→20:24)
[2018-05-23] MEDS: DIPHENHYDRAMINE 50 MG INJ IV (23:42)
[2018-05-24] MEDS: VANCOMYCIN 1 GM 250 ML IVPB ×2 (00:03→13:06)
[2018-05-24] MEDS: ALBUTEROL 0.083% (NEB) 2.5 MG/3 ML AMP HHN ×3 (01:21→13:00)
[2018-05-24] MEDS: HYDROmorphONE 1 MG/ML SYG IV (04:59)
[2018-05-24] MEDS: PANTOPRAZOLE (EC) 40 MG TAB PO (05:32)
[2018-05-24] MEDS: oxyCODONE (CR) 20 MG TAB [oxyCONTIN] PO ×2 (05:49→13:05)
[2018-05-24] MEDS: GABAPENTIN 300 MG CAP PO ×2 (05:49→13:04)
[2018-05-24 06:19] LABS: WHITE BLOOD COUNT 1.9 10^3/ul (4.8-10.8)
[2018-05-24 06:19] LABS: ABNORMAL IP MESSAGE 1; HEMATOCRIT 31.3 % (42.0-52.0); HEMOGLOBIN 9.7 g/dl (14.0-18.0); MEAN CORPUSCULAR HEMOGLOBIN 24.3 pg (29.0-33.0); MEAN CORPUSCULAR VOLUME 78.4 fl (82.0-101.0); MEAN PLATELET VOLUME 10.6 fl (7.4-10.4); PLATELET COUNT 85 10^3/UL (140-415); POSITIVE DIFF @See below; RED BLOOD COUNT 3.99 10^6/ul (4.70-6.10); RED CELL DISTRIBUTION WIDTH 18.8 % (11.5-14.5)
[2018-05-24 06:35] LABS: ADD MAN DIFF? YES
[2018-05-24 06:39] LABS: ANION GAP 4 (5-13); BLOOD UREA NITROGEN 20 mg/dl (7-20); CARBON DIOXIDE 27 mmol/L (21-31); CHLORIDE 107 mmol/L (97-110); CREATININE 0.78 mg/dl (0.61-1.24); Estimated GFR > 60 mL/min (>60); GLUCOSE 101 mg/dl (70-220); POTASSIUM 4.7 mmol/L (3.5-5.1); SODIUM 138 mmol/L (135-144)
[2018-05-24 07:45] LABS: ANISOCYTOSIS 2+ (0-0); BAND NEUTROPHILS % (M) 1 % (0-4); BURR CELLS 1+ (0-0); GIANT THROMBO% (M) 2 % (0-0); LYMPHOCYTES #M 0.7 10^3/ul (0.8-2.9); LYMPHOCYTES % (M) 41 % (15-51); MICROCYTOSIS 2+ (0-0); MONOCYTES % (M) 5 % (0-11); OVALOCYTES 1+ (0-0); PLATELET ESTIMATE DECREASED; POIKILOCYTOSIS 1+ (0-0); SEGMENTED NEUTROPHILS (M) % 53 % (39-77); SMUDGE%M 45 % (0-0)
[2018-05-24] MEDS: ARFORMOTEROL TARTRATE 15MCG/2 ML AMP INH (07:53)
[2018-05-24] MEDS: BUDESONIDE (NEB) 0.5MG/2ML AMP INH (07:54)
[2018-05-24] MEDS: ASPIRIN 81 MG TAB PO (08:09)
[2018-05-24] MEDS: ATENOLOL 50 MG TAB PO (08:10)
[2018-05-24] MEDS: LISINOPRIL 20 MG TAB PO (08:10)
[2018-05-24] MEDS: CEFEPIME 1GM/50 ML (PMX) 50 ML IVPB (08:11)
[2018-05-24] MEDS: METHYLPREDNISOLONE 40 MG INJ IV (08:12)
[2018-05-24] MEDS: ENOXAPARIN 30 MG/0.3 ML SYG SC (08:13)
[2018-05-24] MEDS: ENALAPRILAT 1.25 MG INJ IV (13:18)
[2018-05-24] MEDS: LORAZEPAM 0.5 MG TAB PO (16:08)
[2018-05-24] MEDS: FILGRASTIM 480 MCG INJ SC (17:48)
[2018-05-24] MEDS: HEPARIN (100 UNITS/ML) 5 ML SYG CATHETER (18:07)
== END 2018-05-24 18:14 | disposition home or self-care (01) | DRG 208 ==
LOC: MS1 05-23 00:41 → E/R 04:46 → ICU 06:34
PROVIDERS: Internal Medicine
PROC: 5A1945Z Respiratory Ventilation, 24-96 Consecutive Hours (ICD-10-PCS; principal; 2018-05-18)
PROC: 0BH17EZ Insertion of Endotracheal Airway into Trachea, Via Natural or Artificial Opening (ICD-10-PCS; 2018-05-18)
DX: J96.01 Acute respiratory failure with hypoxia (principal); J18.9 Pneumonia, unspecified organism; G92 Toxic encephalopathy; D61.810 Antineoplastic chemotherapy induced pancytopenia; C38.2 Malignant neoplasm of posterior mediastinum; E87.2 Acidosis; J90 Pleural effusion, not elsewhere classified; J44.1 Chronic obstructive pulmonary disease with (acute) exacerbation; N17.9 Acute kidney failure, unspecified; R78.81 Bacteremia; J96.02 Acute respiratory failure with hypercapnia; E78.5 Hyperlipidemia, unspecified; F41.9 Anxiety disorder, unspecified; F17.210 Nicotine dependence, cigarettes, uncomplicated; G62.9 Polyneuropathy, unspecified; I16.0 Hypertensive urgency; I11.0 Hypertensive heart disease with heart failure; I50.9 Heart failure, unspecified; K76.0 Fatty (change of) liver, not elsewhere classified; R13.19 Other dysphagia; R00.0 Tachycardia, unspecified; R74.0 Nonspecific elevation of levels of transaminase and lactic acid dehydrogenase [LDH]; T45.1X5A Adverse effect of antineoplastic and immunosuppressive drugs, initial encounter; Z90.2 Acquired absence of lung [part of]; Z99.81 Dependence on supplemental oxygen; Z91.14 Patient's other noncompliance with medication regimen
CPT/HCPCS: 31500; 36415; 36600; 70450; 71045; 71275; 80048; 80053; 80076; 80202; 81001; 81003; 82043; 82550; 82553; 82803; 82962; 83605; 83735; 83880; 84100; 84155; 84300; 84484; 85025; 85610; 85730; 86704; 86709; 86803; 87040-91; 87081; 87086; 87340; 92610; 93005; 93306; 94002; 94003; 94640; 94664; 94770; 96365; 96375; 97116; 97161; 99291-25